=== PATIENT | male | born 1940 | race Caucasian/White ===

== ENCOUNTER 2018-04-08 19:59 | Emergency (ER) | payer MEDICARE ==
[2018-04-08] MEDS ORDERED: AMIODARONE 150MG/3ML INJ (J0282) ONE (20:00)
[2018-04-08] MEDS ORDERED: EPINEPHrine 1MG/10ML SYRINGE 1.5IN ONE (20:00)
== END 2018-04-08 23:10 | disposition expired ==
LOC: EDBD 19:59 → M ED 19:59
DX: I46.9 Cardiac arrest, cause unspecified (principal)
CPT/HCPCS: 99285; J0282